=== PATIENT | female | born 2000 | race Two or more races ===

== ENCOUNTER 2024-11-04 22:01 | Emergency (ER) | payer OTHER ==
[~2024-11-04] VITALS: Ht 157.5 cm; Wt 86.4 kg
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
[2024-11-04 22:21] VITALS: BP 115/78; PULSE 89; RESP 16; TEMP 98.7; O2SAT 99
[2024-11-05] MEDS: SILVER SULFADIAZINE 1 % TOPICAL CREAM 50GM TOP ONE (00:54)
== END 2024-11-05 01:40 | disposition home or self-care (01) ==
LOC: ER 22:01
DX: T24.101A Burn of first degree of unspecified site of right lower limb, except ankle and foot, initial encounter (principal); X10.2XXA Contact with fats and cooking oils, initial encounter; Y93.89 Activity, other specified; Y92.89 Other specified places as the place of occurrence of the external cause; Y99.8 Other external cause status
CPT/HCPCS: 16000